=== PATIENT | female | born 1970 | race Two or more races ===

== ENCOUNTER 2024-05-12 21:00 | Inpatient (IN) | payer OTHER, SELFPAY ==
--- NOTE | 2024-05-11 08:23 | W.CON.GYNONC ---
Chief Complaint
-
pelvic mass
History of Present Illness
History of Present Illness
54�year�old G0 white female who presented to [facility] emergency room with 4�day complaints of acute onset crampy
abdominal discomfort and feeling of upper abdominal fullness. She noted change in appetite with sensation of early satiety, in
addition she had described difficulty having daily bowel movement.
CT abdomen and pelvis performed at [facility] shows mild pulmonary scarring and cardiophrenic angles bilaterally, unremarkable
liver and gallbladder, spleen adrenal glands stomach pancreas: Small bowel and no evidence of acute appendicitis. There is some
stranding of the omentum suggesting of inflammation. No nodules to suggest metastatic disease there is a large anteverted uterus
measuring 21 x 26 x 15 cm with multiple Fibroids., There was no ascites and no lymphadenopathy
During the hospital stay a MRI of the abdomen was performed, this shows uterus to be enlarged at 13.7 cm with numerous uterine
Fibroids, there is an additional 13 x 14 x 21 cm mass which could be an exophytic fibroid along the right and superior aspect of the
uterus. Endometrial stripe is 2.4 cm and greater thickness. 3.2 cm cystic structure seen left pelvic adnexa and a 2.6 cm cystic
structure is seen right pelvic adnexa representing ovaries. Minimal fluid is seen in the dependent pelvis
Past medical history hypertension hyperlipidemia
Past gynecologic history includes menarche at age 10, menstrual cycles 5 to 6 days, menopause 1 year ago. Patient has not seen
a psychotherapist social worker for many years
Past surgical history wisdom teeth extraction
Family history maternal grandmother with uterine cancer, father with atrial fibrillation
Social history, denies tobacco use drinks alcohol rarely and socially, denies drug or marijuana use
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
Routine screening: Patient has never had a colonoscopy or mammography
Past Medical History
HTN
HLD
Tachycardia
Surgical History
[place] Teeth
Laser Eye Sx
Health Maintenance and Significant Events
No on�going treatment events have been entered for this patient.
Social History
Patient denies ever using tobacco.
Current alcohol user. Patient reports an average of 1 drinks per month.
Denies any illicit drug use.
Occupational Status: Current: [employer] .
Patient has not had any occupational exposure.
Marital Status: Patient is single
Medical History
Allergies
Allergies reflect when allergies were last updated in [employer].
No Known Allergies Allergy (Unverified 05/08/24 11:48)
Physical Exam
Physical Exam
General:�Well�developed,�well�nourished�patient.�In�no�acute�distress. Head:�Atraumatic�and�normocephalic. Eyes:�EOMI.�Sclerae�are�anicteric. Neck:�No�thyromegaly.�No�cervical�lymphadenopathy.
Lungs:�Clear�to�auscultation.�Good�air�movement�bilaterally. Cardiac:�Regular�rate.�Regular�rhythm.�No�murmurs�appreciated. Right�Breast:�No�masses�or�dimpling.�No�nipple�discharge. Left�Breast:�No�masses�or�dimpling.�No�nipple�discharge.
Abdomen:�Abdomen�is�soft.�Non�tender�to�palpation.�Non�distended. Extremities:�No�edema. Hematologic/Lymphatic:�No�palpable�lymphadenopathy. Musculoskeletal:�Normal�range�of�motion.�Strength�and�Tone�are�normal.
Skin:Non�jaundiced.�No�petechia.�No�purpura. Neurologic:�Speech�is�fluent.�Normal�gait�and�station.�Cranial�nerves�intact.
Pelvic�Examination: External�normal�labia,�urethra,�anus.� Vagina:�Normal�mucosa.� Cervix:�normal�appearance,�no�discharge.� Uterus:�12�weeks�size�mobile,�no�paramterial�fixation�or�nodularity
Adnexa:�Large�mass�palpating�solid�mid�abdomen�above�the�uterus,�it�is�unclear�what�side�it�is�emanating�from RVE:�no�masses�or�nodularity,�rectal�mucosa�smooth
Results
-
CEA�-FinalOrdered by:�Bill Layton Source:�Blood
CEA 0.7 ng/mL 0.0-4.7 [facility]
��������������������������������������������Nonsmokers����������<3.9
��������������������������������������������Smokers�������������<5.6
��������������������������������������������������������������������.
���������������[facility]�Electrochemiluminescence�Immunoassay
���������������(ECLIA)
��������������������������������������������������������������������.
���������������Values�obtained�with�different�assay�methods�or�kits
���������������cannot�be�used�interchangeably.��Results�cannot�be
���������������interpreted�as�absolute�evidence�of�the�presence�or
���������������absence�of�malignant�disease.
Cancer Antigen (CA) 125�-FinalOrdered by:�Bill Layton Source:�Blood
CA125 93.6High
Glucose 111High mg/dL 70-99 [facility]
BUN 14 mg/dL 6-24 [facility]
Creat 0.79 mg/dL 0.57-1.00 [facility]
eGFR 88 mL/min/1.73 >59 [facility]
BUN Creat Ratio 18 9-23 [facility]
Sodium 138 mmol/L 134-144 [facility]
Potassium 5.0 mmol/L 3.5-5.2 [facility]
Chloride 99 mmol/L 96-106 [facility]
CO2 25 mmol/L 20-29 [facility]
Calcium 9.2 mg/dL 8.7-10.2 [facility]
Total Protein 6.7 g/dL 6.0-8.5 [facility]
Albumin 3.4Low g/dL 3.8-4.9 [facility]
Globulin 3.3 g/dL 1.5-4.5 [facility]
Total Bili <0.2 mg/dL 0.0-1.2 [facility]
Alk Phos 173High IU/L 44-121 [facility]
AST 72High IU/L 0-40 [facility]
ALT 50High IU/L 0-32 [facility]
BC with diff�-FinalOrdered by:�Audie Rosa: [facility] ([id number]), [facility]�WBC20.59HighK/uL4.5-10.5[facility]�RBC3.88LowM/uL4-6[facility]�Hgb11.9g/qV48-92Tpxhqfybmqwk - Main
Coult�HCT35.7%35-60[facility]�MCV92.1mX67-02.9[facility]�MCH30.1kb83-51Hvctypjhpado - Main Coul[facility]�MCHC33.3g/tR88-97Hdqwhiuqlron - Main Coult�Owfa637KgeyU/rJ930-196Dnsxwhnebwcd - Main
Coult�Neut%78.0High%42.2-75.2[facility]�Lymph%12.7Low%20.5-51.1[facility]�MONO%6.2%1.7-9.3[facility] Coul[facility]�EOS%2.4%1-7[facility]�BASO%0.4High%0-0.1[facility]�Neut
#16.06HighK/uL1.4-6.5[facility] Coul[facility]�Lymph#2.61K/uL1.2-3.4[facility]�MONO#1.28HighK/uL0.1-0.6[facility]�Eosinophils Absolute0.50K/uL0-0.7[facility]�Basophils Absolute0.08K/uL0-1[facility]
Main Coul[facility]�Gran%0.3%�[facility] Coul[facility]�IG Absolute0.06K/uL�[facility]�Erythrocytes Distribution Width SD42.2fL�[facility]�RDW Ratio12.4%11.6-13.7[facility] Coult�MPV8.5fL7.8-[address] [place] [address] -
Impression / Plan
-
This�is�a�54�year�old�woman�with�no�recent�gynecologic�care�and�also�minimal�primary�care�who�has�recently�presented�to�the
hospital�with�abdominal�pain,�workup�for�several�conditions�including�diverticulitis�and�appendicitis�was�negative�and�eventually
decision�was�made�that�the�cause�of�the�pain�is�related�to�the�mass.�The�mass�based�on�my�personal�review�of�the�images�appears
to�be�either�arising�from�right�ovary�or�possibly�a�pedunculated�leiomyoma.�There�is�some�degree�of�calcification�associated�with�it
making�me�believe�that�this�is�more�likely�leiomyoma.�Inflammatory�changes�in�the�omentum�is�believed�to�be�may�be�due�to
inflammation�and�torsion�of�the�pedunculated�mass�or�possibly�infiltration�secondary�to�neoplastic�process.�There�is�no�evidence�of
ascites�upper�abdominal�masses�or�retroperitoneal�adenopathy.�I�reviewed�the�images�and�the�findings�with�the�patient. I�recommended�surgery�for�management�and�we�discussed�that�she�needs�to�have�uterus�and�cervix�as�well�as�the�large�mass�in
bilateral�tubes�and�ovaries�removed.�Intraoperatively�frozen�section�will�be�obtained�of�the�mass�to�see�whether�we�are�dealing�with�a
malignancy�and�if�malignant�neoplasm�is�identified�the�patient�will�need�to�undergo�additional�staging�procedures�to�include�but�not
limited�to�pelvic�and�aortic�lymph�node�dissection,�omentectomy,�multiple�washings�and�multiple�peritoneal�biopsies�with�a�goal�of complete�cytoreduction.�
I�considered�surgery�via�open�or�minimally�invasive�approach�and�I�would�like�to�start�as�a�minimally invasive�approach�using�robotic�platform,�survey�of�the�upper�abdomen�and�pelvis�will�be�done�and�if�possible�we�plan�to�separate
the�mass�performed�TLH�BSO�and�then�make�an�incision�for�extraction�of�specimens.�She�understands�that�the�procedure�may�be
converted�to�an�open�laparotomy�through�a�large�generous�midline�incision.�Maintaining�the�surgery�as�minimally�invasive�has�the benefit�of�reducing�risk�of�wound�infection�and�reducing�recovery�duration.
Risks�of�surgery�including�infection,�bleeding,�injury�to�adjacent�organs,�DVT�pulmonary�embolism�and�cardiovascular�complications
were�discussed�and�reviewed�with�the�patient.�Informed�consent�will�be�signed�with�the�patient.�I�we�will�try�to�schedule�surgery within�the�next�couple�of�weeks,�preferably�at[facility]
[2024-05-11 13:18] VITALS: BMI 35.2
[2024-05-12] VITALS (13 sets, daily range): BP systolic 107–128; BP diastolic 49–77; BMI 35.2; BMI 33.8
[2024-05-12] MEDS: CELEBREX 200 MG PO (11:50)
[2024-05-12] MEDS: TYLENOL 1000 MG PO (11:51)
[2024-05-12] MEDS: NEURONTIN 300 MG PO (11:52)
[2024-05-12] MEDS: NORMOSOL-R/PLASMALYTE-A 1000 IV (12:13)
[2024-05-12] MEDS: HEPARIN 5000 UNITS SC (14:15)
--- NOTE | 2024-05-12 18:17 | OR.RPT ---
Operative Report
Operative Report
Date of procedure: May 12, 2024
Preoperative diagnosis: pelvic mass
Postop diagnosis: Uterus with multiple leiomyoma and pedunculated leiomyoma with torsion, and inflammation and multiple adhesions.
Surgeon:Audie Saavedra MD
Assist: Johnson RUFFIN
Anesthesia: General
Procedures:
Robotic assisted total laparoscopic hysterectomy, bilateral salpingo-oophorectomy (Uterus >250 gm)
Resection of Pelvic mass/Pedunculated leiomyoma with partial omentectomy
Injection of cervix with ICG dye for mapping and identification of sentinel lymph node, bilateral
Exploratory laparotomy for extraction of specimens
Pelvic washing
Tap block
Repair of serosal injury of small bowel
Estimated blood loss 100 cc
Complication none
Procedure in detail: This patient was brought to the operating room and placed in supine position. General anesthesia was administered and she was intubated without any difficulty. Her arms were protected and wrapped in foam and placed on her
side. Appropriate IVs were placed by anesthesia team, she was positioned in dorsal lithotomy using yellowfin stirrups she was prepped on the abdomen perineum and vagina and draped. Timeout procedure was completed. She received Ancef and Flagyl
for prophylaxis. I went ahead and placed a Thomas catheter for bladder drainage. Cervix was visualized,it had a prominent lip, anterior lip of the cervix was grasped with single-tooth tenaculum. We went ahead and injected the cervix at 3 and 9:00
at 5 mm and 10 mm deep stations. The endocervical canal was dilated. 2.5 cm LENIN ring rug underlay machine operator uterine manipulator was placed in the uterus. Vaginal occluder balloon was insufflated.
Attention was turned abdominally. Veress needle was inserted in the LUQ under costal margin and we were able to achieve pneumoperitoneum with insufflation of the abdomen with CO2 gas up to pressure of 15 mmHg. Next 8 mm XI robotic port was
introduced 35 cm cephalad to symphysis pubis. 8 mm robotic ports were placed otherwise under direct visualization in the right upper quadrant left upper quadrant right and left lateral abdomen. Visualization of diaphragms reveals no evidence of
tumor. There was no evidence of carcinomatosis or ascites. A large mass was present in the mid abdomen which appeared to be arising from the posterior aspects of the uterus pedicle with several twists. The mass appeared to have associated
inflammation with adherent omentum and mesentery of the small and large bowel.
Tap block was performed by injection of total of 60 cc ropivacaine approximately 2 fingerbreadths below the right and left costal margin right and left lateral abdomen and right and left lateral lower abdomen. Following this patient was placed in
28 degree Trendelenburg. Robotic system was docked.
We used monopolar scissors to take down a band of adhesion of cecum to right IP and sigmoid colon to left IP vessels. I went ahead and used the vessel sealer to detach the pelvic mass from the uterus. First we focused on hysterectomy. Right and
left round ligaments were sealed and divided, anterior and posterior leaves of the broad ligament were dissected open and paravesical and pararectal spaces were developed. Following this bladder flap was sharply developed and advanced below the
cervical vaginal junction. Both IP ligaments were isolated. IP ligaments were sealed 3 times and divided. The course of ureter was visualized in the retroperitoneum bilaterally and they were seen vermiculation. Right and left uterine vessels
were skeletonized. Uterine arteries were sealed and divided and transected. Circumferential incision was made around the LENIN ring until the specimen was completely detached. The uterus and cervix and tubes and ovaries were placed in a large
endoscopic bag which was introduced through the vagina. This was kept in the abdomen.
I went ahead and started working on the pelvic mass. Partial omentectomy was performed by ligating a series of vessels on the omentum. Once the omentum was completely detached we then worked on the mass from mesentery of the bowel as
well as several loops of small bowel. There was a 2 small serosal injury to the small bowel. Once the mass was completely detached we undocked the robotic system and released the pneumoperitoneum.
Following this 0 Vicryl suture ligature was used to suspend the right and left apex of vagina to uterosacral ligament. Following this V-Loc suture was used to close the vaginal cuff in a running fashion in 2 layers. The robotic system was
undocked, we proceeded to make a midline vertical skin incision from skin to subcutaneous fat fascia and opened the peritoneum. We removed the uterus and cervix and left tube and ovary and the right tube and ovary had been removed separately. Next
the large pelvic mass and a portion of omentum was removed. The loop of bowel with serosal injury was identified and 2 sutures of 3-0 Vicryl were placed in a seromuscular fashion in order to completely repair the serosal defect. Next the fascia
was closed with 0 looped PDS starting from both ends coming to the center and they were tied to each other. Subcutaneous tissue was reapproximated with 2-0 Monocryl suture. We used 4-0 Monocryl suture to close the skin incision in a running
fashion, all ports were closed with 4-0 Monocryl suture in a subcuticular fashion.
Vaginal cuff occluder was removed and the Thomas catheter was removed. Vaginal cuff was examined and there was no evidence of bleeding. Counts of laps instruments and needle was correct x 2. I was present and scrubbed for entire procedure as
dictated above.
[2024-05-12] MEDS: DILAUDID 0.25 MG IV (19:00)
[2024-05-12] MEDS: TORADOL 15 MG IV (19:49)
[2024-05-12] MEDS: NSS 1000 IV (20:23)
[2024-05-12] MEDS: TYLENOL 650 MG PO (20:29)
[2024-05-12] MEDS: COLACE 100 MG PO (20:29)
[2024-05-12] MEDS: ROXICODONE 5 MG PO (20:29)
[2024-05-13] MEDS: ROXICODONE 5 MG PO ×3 (00:14→13:23)
[2024-05-13] MEDS: TYLENOL 650 MG PO ×2 (00:14→06:31)
[2024-05-13] MEDS: TORADOL 15 MG IV ×2 (02:55→07:40)
[2024-05-13 03:03] VITALS: BP 145/82
[2024-05-13] MEDS: ORETIC 12.5 MG PO (07:40)
[2024-05-13] MEDS: ZESTRIL 10 MG PO (07:40)
[2024-05-13] MEDS: TOPROL XL 100 MG PO (07:40)
[2024-05-13] MEDS: COLACE 100 MG PO (07:40)
[2024-05-13] MEDS: NORVASC 5 MG PO (07:40)
[2024-05-13] MEDS: LOW STRENGTH ASPIRIN 81 MG PO (07:40)
[2024-05-13 07:43] VITALS: BP 146/86
[2024-05-13 07:48] LABS: % Basophils 0.2 % (0-2); % Immature Granulocytes 0.6 % (0-0.5); % Lymphocytes 7.6 % (20.5-51.1); % Monocytes 2.3 % (1.7-9.3); % Neutrophils 89.3 % (42.2-75.2); Absolute Immature Granulocytes 0.1 10^3/uL (0-0.05); Absolute Lymphocytes 1.4 10^3/uL (1.2-3.4); Absolute Monocytes 0.4 10^3/uL (0.1-0.6); Absolute Neutrophils 16.2 10^3/uL (1.4-6.5); Hematocrit 32.7 % (37.0-47.0); Hemoglobin 10.9 g/dL (12.0-16.0); Mean Corp Hgb Conc. 33.3 g/dL (33.0-37.0); Mean Corpuscular Hgb 28.7 pg (27.0-31.0); Mean Corpuscular Volume 86.1 fL (81.0-99.0); Mean Platelet Volume 8.8 fL (7.4-10.4); Nucleated Red Blood Cells % 0 %; Platelet Count 728 10^3/uL (130-400); Red Cell Dist. Width 12.3 % (11.5-14.5); White Blood Cell Count 18.1 10^3/uL (4.8-10.8)
[2024-05-13 08:27] LABS: ALT (SGPT) 39 U/L (0-35); AST (SGOT) 35 U/L (14-36); Albumin 3.4 g/dl (3.5-5.0); Alkaline Phosphatase 146 U/L (38-126); Blood Urea Nitrogen 18 mg/dl (7-17); Calcium 9.1 mg/dl (8.4-10.2); Carbon Dioxide 22 mmol/L (22-30); Chloride 100 mmol/L (98-107); Estimated Creatinine Clearance 119 ml/min; Glucose 169 mg/dl (70-99); Potassium 5.5 mmol/L (3.5-5.1); Sodium 137 mmol/L (135-145); Total Bilirubin 0.2 mg/dl (0.2-1.3); Total Protein 6.5 g/dl (6.3-8.2); eGFR > 60.00
[2024-05-13 11:26] VITALS: BP 146/74
--- NOTE | 2024-05-13 12:19 | W.PN.GYNONC ---
Today's Communication
-
Plan is for discharge home this afternoon or evening
Impression / Plan
-
Patient is doing well postoperatively. I reviewed discharge instruction with the patient
From my perspective she is stable to leave today. I recommended her to stay with her parents for the next 2 to 3 days. She is recommended to take combination of Tylenol and ibuprofen [id number] every 6 hours for the next 72 hours and then as
needed.
She is also recommended to walk at least 2-3 times a day 10 minutes at a time.
Questions were answered, labs were reviewed, I plan to see her back in the office in 2 weeks l
Subjective / Interval History
-
Postop day 1 status post robotic TLH BSO with resection of large pedunculated torsed leiomyoma., As well as laparotomy for extraction of specimen.
She has been able to void, she walked to the bathroom or within her room without any difficulty. She has had some incisional pain while in chair but is more comfortable reclining in bed
Objective Data
-
Lab Results:
05/13/24 07:15
05/13/24 07:15
Physical Exam
Vital Signs / I&O
Vitals
Temp Pulse Resp BP Pulse Ox
98.4 F 90 19 146/74 97
05/13/24 11:26 05/13/24 11:26 05/13/24 11:26 05/13/24 11:26 05/13/24 11:26
I&O
05/11/24 05/12/24 05/13/24 05/14/24
06:59 06:59 06:59 06:59
Intake Total 1480 / 1480
Output Total 950 / 950
Balance 530 / 530
Physical Exam
General: Well Developed and Well Nourished
Respiratory: Clear and Non Labored Respirations
Cardiac: S1/S2 and Regular Rhythm
GI: Soft, Non Tender and Other (Midline incision is inspected and there is no separation or erythema. Very little serosanguineous fluid is present)
Musculoskeletal: No Cyanosis and No Edema
Neuro: Awake, Alert and AO x 3
Psych: Calm and Intact Judgement
--- NOTE | 2024-05-13 13:20 | W.DCSUMMARY ---
Discharge Summary
Discharge Data
Date of Admission: 05/12/24
Date of Discharge: 05/13/24
-
Pending Results: No
Additional Pending Results:
Pathology
Hospital Course
54�year�old G0 white female who presented to [facility] emergency room with 4�day complaints of acute onset crampy
abdominal discomfort and feeling of upper abdominal fullness. She noted change in appetite with sensation of early satiety, in
addition she had described difficulty having daily bowel movement.
CT abdomen and pelvis performed at [facility] shows mild pulmonary scarring and cardiophrenic angles bilaterally, unremarkable
liver and gallbladder, spleen adrenal glands stomach pancreas: Small bowel and no evidence of acute appendicitis. There is some
stranding of the omentum suggesting of inflammation. No nodules to suggest metastatic disease there is a large anteverted uterus
measuring 21 x 26 x 15 cm with multiple Fibroids., There was no ascites and no lymphadenopathy
During the hospital stay a MRI of the abdomen was performed, this shows uterus to be enlarged at 13.7 cm with numerous uterine
Fibroids, there is an additional 13 x 14 x 21 cm mass which could be an exophytic fibroid along the right and superior aspect of the
uterus. Endometrial stripe is 2.4 cm and greater thickness. 3.2 cm cystic structure seen left pelvic adnexa and a 2.6 cm cystic
structure is seen right pelvic adnexa representing ovaries. Minimal fluid is seen in the dependent pelvis
Past medical history hypertension hyperlipidemia
Past gynecologic history includes menarche at age 10, menstrual cycles 5 to 6 days, menopause 1 year ago. Patient has not seen
a coal deliverer for many years
Past surgical history wisdom teeth extraction
Family history maternal grandmother with uterine cancer, father with atrial fibrillation
Social history, denies tobacco use drinks alcohol rarely and socially, denies drug or marijuana use
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
Routine screening: Patient has never had a colonoscopy or mammography
Past Medical History
HTN
HLD
Tachycardia
Surgical History
[place] Teeth
Laser Eye Sx
Health Maintenance and Significant Events
No on�going treatment events have been entered for this patient.
Social History
Patient denies ever using tobacco.
Current alcohol user. Patient reports an average of 1 drinks per month.
Denies any illicit drug use.
Occupational Status: Current: [employer] .
Patient has not had any occupational exposure.
Marital Status: Patient is single
Medical History
Allergies
Allergies reflect when allergies were last updated in [employer].
No Known Allergies Allergy (Unverified 05/08/24 11:48)
Physical Exam
General:�Well�developed,�well�nourished�patient.�In�no�acute�distress. Head:�Atraumatic�and�normocephalic. Eyes:�EOMI.�Sclerae�are�anicteric. Neck:�No�thyromegaly.�No�cervical�lymphadenopathy.
Lungs:�Clear�to�auscultation.�Good�air�movement�bilaterally. Cardiac:�Regular�rate.�Regular�rhythm.�No�murmurs�appreciated. Right�Breast:�No�masses�or�dimpling.�No�nipple�discharge. Left�Breast:�No�masses�or�dimpling.�No�nipple�discharge.
Abdomen:�Abdomen�is�soft.�Non�tender�to�palpation.�Non�distended. Extremities:�No�edema. Hematologic/Lymphatic:�No�palpable�lymphadenopathy. Musculoskeletal:�Normal�range�of�motion.�Strength�and�Tone�are�normal.
Skin:Non�jaundiced.�No�petechia.�No�purpura. Neurologic:�Speech�is�fluent.�Normal�gait�and�station.�Cranial�nerves�intact.
Pelvic�Examination: External�normal�labia,�urethra,�anus.� Vagina:�Normal�mucosa.� Cervix:�normal�appearance,�no�discharge.� Uterus:�12�weeks�size�mobile,�no�paramterial�fixation�or�nodularity
Adnexa:�Large�mass�palpating�solid�mid�abdomen�above�the�uterus,�it�is�unclear�what�side�it�is�emanating�from RVE:�no�masses�or�nodularity,�rectal�mucosa�smooth
Hospital course
Patient was taken to the operating room, robotic assisted total laparoscopic hysterectomy, bilateral salpingo-oophorectomy was performed. It was noted that she had a 25 cm solid mass which was a leiomyoma on a pedunculated stalk that was twisted 3
times. This mass had associated inflammation and was adherent to the mesentery of small and large bowel loops of small bowel as well as omentum, portion of the omentum was resected and removed with the mass, the adhesions were lysed, once the mass
was completely free we proceeded to perform a laparotomy and all the specimens were removed, because of midline vertical skin incision requiring IV pain medication the patient was admitted to the hospital, postoperative labs were normal and as
expected. She was able to tolerate diet okay she was able to void without difficulty. She does have some anticipated and expected incisional pain which is under control with combination of acetaminophen, ibuprofen and intermittent oxycodone.
Discharge instructions were reviewed with the patient, she will be sent home and follow-up will be done in 2 weeks.
Discharge Plan
-
Patient Disposition: Home (Routine Discharge)
Discharge Diagnosis/Procedures: Pedunculated leiomyoma of uterus with torsion and intra-abdominal inflammation
Diet: No restrictions
Activity: No strenuous activity
Additional Activity: Avoid lifting over 10 pounds, no driving for 1 weeks
Driving Restrictions: No driving for 1 week
Bathing Restrictions: OK to Shower
Referrals:
Mame Rebollar DO [Family Provider] -
Prescriptions:
Continued
pravastatin 40 mg Tablet
40 mg PO HS
metoprolol tartrate 100 mg Tablet
100 mg PO BID
amlodipine 5 mg Tablet
5 mg PO BID
tramadol 50 mg Tablet
50 mg PO BID PRN (Reason: pain)
acetaminophen [Tylenol Ex Str Arthritis Pain] 500 mg Tablet
1,000 mg PO QID PRN (Reason: pain)
lisinopril 10 mg Tablet
10 mg PO DAILY
hydrochlorothiazide 12.5 mg Tablet
12.5 mg PO DAILY
aspirin 81 mg Capsule
81 mg PO HS
Discharge Orders:
Discharge Patient (As Directed); Ordered 05/13/24
Ordered By: Audie Saavedra
Discharge Date and Time
Print Language: ARABIC
[2024-05-13] MEDS: TORADOL IV (15:11)
[2024-05-13 15:38] VITALS: BP 117/65
--- NOTE | 2024-05-17 08:10 | W.PN.UPDATE ---
Update Note
Progress Note Update
This note is intended to clarify that the procedure performed on May 12, 2024 included robotic assisted total laparoscopic hysterectomy with bilateral salpingo-oophorectomy for uterus greater than 250 g 03101 but also included resection of a
large pelvic mass over 20 cm that required a laparotomy 74737 . The level of care provided is intended for inpatient procedure.
== END 2024-05-13 16:58 | disposition home or self-care (01) | DRG 743 ==
LOC: PACUI 21:00
PROVIDERS: ADMITTING PHYSICIAN Obstetrics & Gynecology Gynecologic Oncology; FAMILY PHYSICIAN Family Medicine
PROC: 0UT7FZZ Resection of Bilateral Fallopian Tubes, Via Natural or Artificial Opening With Percutaneous Endoscopic Assistance (ICD-10-PCS; 2024-05-12)
PROC: 0UT9FZZ Resection of Uterus, Via Natural or Artificial Opening With Percutaneous Endoscopic Assistance (ICD-10-PCS; 2024-05-12)
PROC: 0DBV4ZZ Excision of Mesentery, Percutaneous Endoscopic Approach (ICD-10-PCS; 2024-05-12)
PROC: 0UT2FZZ Resection of Bilateral Ovaries, Via Natural or Artificial Opening With Percutaneous Endoscopic Assistance (ICD-10-PCS; 2024-05-12)
PROC: 8E0W4CZ Robotic Assisted Procedure of Trunk Region, Percutaneous Endoscopic Approach (ICD-10-PCS; 2024-05-12)
PROC: 0DBU4ZZ Excision of Omentum, Percutaneous Endoscopic Approach (ICD-10-PCS; 2024-05-12)
DX: D25.2 Subserosal leiomyoma of uterus (principal); I10 Essential (primary) hypertension; K66.0 Peritoneal adhesions (postprocedural) (postinfection); N80.03 Adenomyosis of the uterus; N84.0 Polyp of corpus uteri; N83.8 Other noninflammatory disorders of ovary, fallopian tube and broad ligament; E78.5 Hyperlipidemia, unspecified; Z79.899 Other long term (current) drug therapy; Z80.49 Family history of malignant neoplasm of other genital organs
CPT/HCPCS: 88305; 88307; 36415; 80053; 85025; 86850; 86900; 86901; 88112; 93005